=== PATIENT | female | born 1965 ===

== ENCOUNTER 2019-07-17 19:04 | Inpatient (IN) ==
[2019-07-17] MEDS ORDERED: SODIUM CHLORIDE 0.9% 1,000 ML IV STA (19:46)
[2019-07-17] MEDS ORDERED: FAMOTIDINE 20 MG/2 ML VIAL IV STA (20:12)
[2019-07-17] MEDS ORDERED: LIDOCAINE 1% 20 ML VIAL ONE (21:52)
[2019-07-17] MEDS ORDERED: BUPIVACAINE 0.25% /EPI 10 ML VIAL ONE (21:52)
[2019-07-17] MEDS ORDERED: MORPHINE 4 MG/1 ML VIAL IV PRN (22:30)
[2019-07-17] MEDS ORDERED: ACETAMINOPHEN 325 MG TABLET PO PRN (22:30)
[2019-07-17] MEDS ORDERED: ONDANSETRON 4 MG/2 ML VIAL IV PRN (22:30)
[2019-07-17] MEDS ORDERED: fentaNYL 100 MCG/2 ML VIAL ONE (22:49)
[2019-07-17] MEDS ORDERED: PROPOFOL 200 MG/20 ML VIAL IV ONE (22:49)
[2019-07-17] MEDS ORDERED: METOCLOPRAMIDE 10 MG/2 ML VIAL ONE (22:49)
[2019-07-17] MEDS ORDERED: GLYCOPYRROLATE 0.4 MG/2 ML VIAL ONE (22:49)
[2019-07-17] MEDS ORDERED: DESFLURANE 1 UNIT/15 MINUTE INH ONE (22:49)
[2019-07-17] MEDS ORDERED: SUCCINYLCHOLINE 200 MG/10 ML VIAL ONE (22:50)
[2019-07-17] MEDS ORDERED: NEOSTIGMINE 10 MG/10 ML VIAL ONE (22:50)
[2019-07-17] MEDS ORDERED: ROCURONIUM 100 MG/10 ML VIAL IV ONE (22:50)
[2019-07-18] MEDS: PIPERACILLIN/TAZOBACTAM 3,375 MG in SODIUM CHLORIDE 0.9% 100 ML IV SCH ×3 (01:20→16:32)
[2019-07-18] MEDS: LACTATED RINGERS 1,000 ML IV SCH ×2 (01:20→05:55)
[2019-07-18 07:26] LABS: Basophils # 0.1 10*3/uL (0.0-0.2); Basophils % 0.6 % (0.0-0.8); Eosinophils % 0.2 % (0.00-10.9); Hematocrit 32.1 VOL% (35.7-47.0); Hemoglobin 10.3 GM/DL (12.0-16.0); Immature Granulocytes % 0.6 %; Immature Granulocytes Absolute 0.07 #; Lymphocytes # 2.2 10*3/uL (1.4-4.0); Lymphocytes % 20.4 % (21.3-54.2); Mean Corpuscular HGB Conc 32.1 GM/DL (32-36); Mean Corpuscular Volume 91.2 FL (87-102); Mean Platelet Volume 11.5 FL (9.6-12.0); Monocytes % 7.1 % (1.7-12.7); Neutrophils % 71.1 % (38.7-73.9); Platelet Count 148 T/CUMM (130-400); Red Blood Count 3.52 MC/CUMM (3.8-5.5); Red Cell Distribution Width 13.2 % (9.3-17.3); White Blood Count 10.9 T/CUMM (4-12)
[2019-07-18] MEDS ORDERED: DEXTROSE 10% 250 ML BAG IV PRN (08:52)
[2019-07-18] MEDS ORDERED: GLUCAGON 1 MG VIAL IM PRN (08:52)
[2019-07-18] MEDS ORDERED: LACTATED RINGERS 1,000 ML IV ONE (08:53)
[2019-07-18] MEDS: SILVER SULFADIAZINE 1% CREAM 25 GM TUBE TOP SCH (09:00)
[2019-07-18] MEDS: FENOFIBRATE 145 MG TABLET PO SCH (09:00)
[2019-07-18] MEDS: PANTOPRAZOLE 40 MG TABLET PO SCH (09:19)
[2019-07-18] MEDS: ASPIRIN EC 81 MG TABLET PO SCH (09:30)
[2019-07-18] MEDS: NORTRIPTYLINE 25 MG CAPSULE PO SCH (10:32)
[2019-07-18] MEDS: INSULIN LISPRO 100 UNIT/ML SUBCUT SCH ×2 (13:00→18:17)
[2019-07-18] MEDS ORDERED: ATORVASTATIN 40 MG TABLET PO SCH (21:00)
[2019-07-18] MEDS ORDERED: GABAPENTIN 300 MG CAPSULE PO SCH (21:00)
[2019-07-19] MEDS: LACTATED RINGERS 1,000 ML IV SCH
[2019-07-19] MEDS: PIPERACILLIN/TAZOBACTAM 3,375 MG in SODIUM CHLORIDE 0.9% 100 ML IV SCH ×2 (00:39→09:00)
[2019-07-19 04:21] LABS: Basophils % 0.3 % (0.0-0.8); Eosinophils # 0.1 10*3/uL (0.0-0.87); Eosinophils % 1.1 % (0.00-10.9); Hematocrit 29.9 VOL% (35.7-47.0); Hemoglobin 9.4 GM/DL (12.0-16.0); Immature Granulocytes % 0.5 %; Immature Granulocytes Absolute 0.04 #; Lymphocytes # 3.3 10*3/uL (1.4-4.0); Lymphocytes % 37.3 % (21.3-54.2); Mean Corpuscular HGB Conc 31.4 GM/DL (32-36); Mean Corpuscular Volume 91.7 FL (87-102); Mean Platelet Volume 11.6 FL (9.6-12.0); Monocytes % 5.9 % (1.7-12.7); Neutrophils % 54.9 % (38.7-73.9); Platelet Count 138 T/CUMM (130-400); Red Blood Count 3.26 MC/CUMM (3.8-5.5); Red Cell Distribution Width 13.2 % (9.3-17.3); White Blood Count 8.7 T/CUMM (4-12)
[2019-07-19 04:49] LABS: Albumin 2.7 G/DL (3.4-5.0); Bilirubin,Total 0.4 MG/DL (0.2-1.0); Calcium 8.2 MG/DL (8.5-10.1); Osmolality,Calculated 286.4 MOS/KG (273-304); Total Protein 6.4 G/DL (6.4-8.3)
[2019-07-19] MEDS: INSULIN LISPRO 100 UNIT/ML SUBCUT SCH (09:00)
[2019-07-19] MEDS: FENOFIBRATE 145 MG TABLET PO SCH (09:21)
[2019-07-19] MEDS: ASPIRIN EC 81 MG TABLET PO SCH (09:21)
[2019-07-19] MEDS: NORTRIPTYLINE 25 MG CAPSULE PO SCH (09:21)
[2019-07-19] MEDS: PANTOPRAZOLE 40 MG TABLET PO SCH (09:21)
[2019-07-19] MEDS: SILVER SULFADIAZINE 1% CREAM 25 GM TUBE TOP SCH (09:21)
[2019-07-19 11:49] VITALS: BP 149/76
== END 2019-07-19 11:30 | disposition home or self-care (01) | DRG 340 ==
LOC: EDBD → EDUNIT# → N.ED 19:04 → N.3E 21:47 → N.ED 21:47 → N.SDS 22:23 → N.SDSINP 22:24 → N.3E 22:30
PROVIDERS: ADMIT Surgery; ATTEND Surgery